=== PATIENT | male | born 1995 | race African-American/Black ===

== ENCOUNTER 2023-08-05 10:22 | Emergency (ER) | payer OTHER ==
[~2023-08-05] VITALS: Ht 177.8 cm; Wt 59.1 kg
[2023-08-05 12:52] VITALS: TEMP 98
[2023-08-05] MEDS ORDERED: ACETAMINOPHEN/CODEINE 300-30 MG TABLET PO ONE (13:00)
[2023-08-05] MEDS ORDERED: KETOROLAC TROMETHAMINE 60 MG/2 ML VIAL IM ONE (13:00)
[2023-08-05] MEDS ORDERED: IBUP-1554 PO (14:26)
[2023-08-05] MEDS ORDERED: ACET-2080 PO (14:26)
[2023-08-05 15:00] VITALS: BP 120/74; PULSE 65; RESP 12
== END 2023-08-05 15:05 | disposition home or self-care (01) ==
LOC: EMS 10:23
DX: S13.4XXA Sprain of ligaments of cervical spine, initial encounter (principal); S39.012A Strain of muscle, fascia and tendon of lower back, initial encounter; S80.01XA Contusion of right knee, initial encounter; F17.210 Nicotine dependence, cigarettes, uncomplicated; V98.8XXA Other specified transport accidents, initial encounter; Y93.89 Activity, other specified; Y92.89 Other specified places as the place of occurrence of the external cause; Y99.8 Other external cause status
CPT/HCPCS: 99284; 71045; 72040; 72070; 72100; 73562; 96372; J1885